=== PATIENT | male | born 1985 | race Caucasian/White ===

== ENCOUNTER 2018-05-18 15:11 | Emergency (ER) | payer MEDICAID ==
--- NOTE | 2018-05-18 17:23 | ED Physician Chart ---
ED Chief Complaint/HPI - Patient Information Date Seen:: 05/18/18 Time Seen:: 15:30 Chief Complaint:: LBP History of Present Illness:: 32 YR OLD MALE WITH BACK PAIN NO TRAUMA NO NUMBNESS PAIN GOING FROM BACK TO BUTTOCKS Allergies:: Allergies Allergy/AdvReac Type Severity Reaction Status Date / Time No Known Allergies Allergy Verified 04/29/16 10:42 Vitals:: Vital Signs - 8 hr 05/18/18 15:30 Temp 98.1 F HR 71 RR 16 BP 139/76 O2 Sat % 97 ED Review of Systems - Review of Systems General/Constitutional: No fever, No chills, No weight loss, No weakness, No diaphoresis, No edema, No loss of appetite Skin: No skin lesions, No rash, No bruising Head: No headache, No light-headedness Eyes: No loss of vision, No pain, No diplopia ENT: No earache, No nasal drainage, No sore throat, No tinnitus Neck: No neck pain, No swelling, No thyromegaly, No stiffness, No mass noted Cardio Vascular: No chest pain, No palpitations, No PND, No orthopnea, No edema Pulmonary: No SOB, No cough, No sputum, No wheezing GI: No nausea, No vomiting, No diarrhea, No pain, No melena, No hematochezia, No constipation, No hematemesis G/U: No dysuria, No frequency, No hematuria Musculoskeletal: Bone or joint pain Endocrine: No polyuria, No polydipsia Psychiatric: No prior psych history, No depression, No anxiety, No suicidal ideation Hematopoietic: No bruising, No lymphadenopathy Allergic/Immuno: No urticaria, No angioedema Neurological: No syncope, No focal symptoms, No weakness, No paresthesia, No headache, No seizure, No dizziness, No confusion, No vertigo ED Past Medical History - Past Medical History Past Medical History: No significant medical hx Family Medical History - Family Member Mother History Unknown: Yes ED Physical Exam - Physical Examination Other Extremities comments:: DECREASED ROM LEGS SECONDARY TO PAIN ED Assessment - Assessment General Assessment: LBP ED Septic Shock - . Is Septic Shock (SBP<90, OR Lactate>4 mmol\L) present?: No - <6hrs of presentation: Vital Signs: Vital Signs - 8 hr 05/18/18 15:30 Temp 98.1 F HR 71 RR 16 BP 139/76 O2 Sat % 97 ED Reassessment (Disposition) - Reassessment Reassessment Condition:: Improved - Diagnosis Diagnosis:: LOW BACK PAIN - Patient Disposition Discharge/Transfer:: Elope/AWOL Condition at Disposition:: Stable
== END 2018-05-18 16:00 | disposition left against medical advice (07) ==
LOC: ER 15:11
DX: M54.5 Low back pain (principal)
CPT/HCPCS: Z7502